=== PATIENT | female | born 1965 | race Caucasian/White ===

== ENCOUNTER 2020-09-12 09:55 | Emergency (ER) | payer OTHER, SELFPAY ==
--- NOTE | ~2020-09-12 | XR_ITS ---
EXAMINATION: XR chest 1V CLINICAL INFORMATION: Productive cough COMPARISON: None TECHNIQUE: XR chest 1V Tubes and lines: None Lungs and Margaret: Both lungs are clear. Pleura: Normal. Costophrenic angles are sharp. No pneumothorax. Heart and mediastinum: The mediastinum is within normal limits.. Bones: Skeletal structures included are normal for patient's age. XR/XR chest 1V IMPRESSION: No radiographic evidence of acute infiltrates or failure.
[2020-09-12 10:09] VITALS: BP 131/90; PULSE 76; RESP 18; TEMP 37; O2SAT 97; BMI 41.6
--- NOTE | 2020-09-12 10:48 | ED_ITS ---
HPI - URI/Sore Throat General Chief Complaint: General Medical Stated Complaint: COVID SYMPTOMS Time Seen by Provider: 09/12/20 10:18 Source: patient Mode of arrival: ambulatory Limitations: no limitations History of Present Illness HPI Narrative: 55-year-old female with a past medical history of bipolar, PTSD, depression, anxiety and a daily smoker presenting to the ED with complaints of subjective fevers, chills, body aches, generalized fatigue, nausea/vomiting, nasal congestion, productive cough with yellow-colored sputum, generalized abdominal pain and diarrhea for the past 2 days. Denies recent travel or sick contacts. Denies any dizziness, headaches, neck pain or stiffness, chest pain, dyspnea on exertion, orthopnea, palpitations, extremity edema, dysuria or any other symptoms complaints or concerns at this time. MD elicited complaint: fever, cough, rhinorrhea and nasal congestion Onset (ago): day(s) (2) Consistency: constant Severity: moderate Description of mucous: yellow Able to tolerate fluids by mouth: Yes Exacerbating factors: nothing Relieving factors: nothing Associated symptoms: fever, chills, myalgias, rhinorrhea, nasal congestion, cough, shortness of breath, abdominal pain, nausea, vomiting and diarrhea Treatments prior to arrival: none Related Data Previous Rx's Medication Instructions Recorded acetaminophen [Tylenol Extra 1,000 mg PO Q6-8H PRN #14 tab 09/12/20 Strength] albuterol sulfate 1 inh INHALATION QID PRN #8.5 g 09/12/20 azithromycin See Rx Instructions .ROUTE 09/12/20 .COMPLEX #6 tab cyclobenzaprine 10 mg PO TID PRN #10 tab 09/12/20 ibuprofen 800 mg PO Q8H PRN #14 tab 09/12/20 metoclopramide HCl [Reglan] 10 mg PO Q6H PRN #10 tab 09/12/20 prednisone 40 mg PO DAILY 5 Days #10 tab 09/12/20 Allergies Allergy/AdvReac Type Severity Reaction Status Date / Time No Known Allergies Allergy Unverified 04/23/20 15:16 Review of Systems Review of Systems: Constitutional : + Fever, + Chills, + Fatigue, + Malaise, No Night Sweats ENT/Mouth : + Nasal Congestion/rhinorrhea, No Sinus Pain, No Hoarseness, No sore throat, No Swallowing Difficulty, No Hearing loss, No Ear Pain Eyes: No Eye Pain, No Swelling, No Redness, No Foreign Body, No Discharge, No Vision Changes Cardiovascular : + SOB, No Chest Pain, No Dyspnea on Exertion, No Orthopnea, No Edema, No Palpitations Respiratory : + Cough, + Sputum, No Wheezing, No Smoke Exposure, No Dyspnea Gastrointestinal : + Nausea, + Vomiting, + Diarrhea, + Abdominal pain, No Constipation, No Hematochezia, No Melena Genitourinary : no irregular bleeding, No Dysuria, No Urinary Frequency, No Hematuria, No Urinary Incontinence, No Urgency, No Flank Pain, No Urinary Flow Changes, No Hesitancy Musculoskeletal : + Myalgias, No joint pain, No Joint Swelling Skin : No Skin Lesions, No rash Neuro : No Weakness, No Numbness, No Paresthesias, No Loss of Consciousness, No Dizziness, No Headache Psych : No Anxiety/Panic, No Depression, No SI/HI/AH/VH, No Social Issues, Heme/Lymph: No Bruising, No Bleeding,No Lymphadenopathy Endocrine : No Polyuria, No Polydipsia, No Temperature Intolerance Yes all other systems are reviewed and are negative [facility] Past Medical History Attestation statement: The following information was validated with the patient. Medical History Anxiety Bipolar disorder Depression Pneumonia PTSD (post-traumatic stress disorder) Smoker Social History Social History Advance Directives: No Advance Directives Information Provided: No Physical Exam Vital Signs: Vital Signs: Last Vital Signs Temp 98.6 F 09/12/20 10:09 Pulse 76 09/12/20 10:09 Resp 18 09/12/20 10:09 BP 131/90 H 09/12/20 10:09 Pulse Ox 97 09/12/20 10:09 Body Mass Index 41.6 vital signs have been reviewed as normal and appeared to be correct. Blood pressure normal. Heart rate normal. Respiration rate normal. Temperature normal. Oxygen saturation normal. Appearance: Alert. Oriented X3. No acute distress. Head: Normal external exam. Normocephalic. Atraumatic. Eyes: PERRLA. EOMI. Conjunctiva and sclera normal. Eyelids normal. ENT: EAC normal. TM's Normal. Pharynx normal. Uvula midline. Moist mucous membranes. No trismus noted. No drooling noted. No muffled voice noted. Neck: Normal inspection. Neck supple. FROM. No adenopathy. Thyroid Normal. Trachea midline. No meningeal signs. No neck mass noted. CVS: Normal heart rate and rhythm. Heart sound normal. No murmurs noted. Pulses normal throughout. Respiratory: No respiratory distress. Painless inspiration. Breath sounds normal. No wheezes/rales/rhonchi noted. Chest nontender. No accessory muscle usage noted or decreased air movement noted. Abdomen: Soft and nontender. Bowel sounds normal in all 4 quadrants. No distention noted. No organomegaly noted. No visible injury noted. Back: No CVA tenderness. Full range of motion noted. Skin: Skin warm and dry. Normal skin color. Normal skin turgor. No rashes/lesions/lacerations noted. Extremities: No lower extremity edema. No calf tenderness noted. Extremities exhibit normal range of motion. Extremities nontender. Neuro: Oriented X 3. No motor deficit. No sensory deficit. Reflexes normal. Course Course Course Narrative: 55-year-old female with a past medical history of bipolar, PTSD, depression, anxiety and a daily smoker presenting to the ED with complaints of subjective fevers, chills, body aches, generalized fatigue, nausea/vomiting, nasal congestion, productive cough with yellow-colored sputum, generalized abdominal pain and diarrhea for the past 2 days. - on exam patient is alert and oriented x3. Not in any acute distress. Vital signs are within normal limits. Lungs are clear to auscultation. - I offered the patient labs, IV fluids and a chest x-ray although patient refused labs and IV fluids and is requesting solely a chest x-ray and a COVID/flu/RSV swab. - therefore at this time patient will have a SARS/flu/RSV swab and a chest x- ray. Will DC home with antibiotics and symptomatic treatment along with instructions to self isolate and instructions to return if any new or worsening symptoms. Patient understands agrees the plan. MDM - URI/Sore Throat Medical Records Attestation: I reviewed the patient's medical records. Lab Data Attestation: I reviewed the patient's lab results. Labs: Lab Results 09/12/20 Range/Units 10:49 Coronavirus (PCR) NEGATIVE (Negative) Influenza Type A (PCR) NEGATIVE (Negative) Influenza Type B (PCR) NEGATIVE (Negative) RSV RNA Qual (PCR) NEGATIVE (Negative) Imaging Data Chest x-ray: Attestation: I personally reviewed and interpreted this imaging study as follows: Radiologist's impression: EXAMINATION: XR chest 1V CLINICAL INFORMATION: Productive cough COMPARISON: None TECHNIQUE: XR chest 1V Tubes and lines: None Lungs and Margaret: Both lungs are clear. Pleura: Normal. Costophrenic angles are sharp. No pneumothorax. Heart and mediastinum: The mediastinum is within normal limits.. Bones: Skeletal structures included are normal for patient's age. XR/XR chest 1V IMPRESSION: No radiographic evidence of acute infiltrates or failure. Discharge Plan Discharge Clinical Impression: Acute viral syndrome Patient Disposition: Home, Self-Care Instructions: COVID-19 (Coronavirus Disease 2019) (ED) Additional Instructions: Based on your symptoms and history we have sent a COVID-19. Although your RESULT IS NEGATIVE at this time. At this time you will be okay for discharge. Please plan for self quarantine for up to 14 days. Do not expose yourself to others. You may not go to work. If testing does come back negative you may return to activities as long as you are no longer having any symptoms for at least 3 days. Please continue to follow cold instructions and wash your hands frequently. You may take Tylenol as directed on the bottle for pain or fever. Patient seen in the emergency department on 09/12/2020 and should be excused from work until negative test results AND until 72 hours without any symptoms AND at least 10 days have passed since symptoms first appeared or since last exposure to COVID-19 positive patient CDC Guidelines for home isolation: - Stay away from others - WEAR A MASK if you are sick AND STAY HOME - Cover your mouth and nose with a tissue when you cough or sneeze. Dispose of tissues in a lined trash can and wash your hands immediately with soap and water for at least 20 seconds. If soap and water are not available, clean hands with alcohol-based hand director embalmer that contains at least 60% alcohol. - Clean your hands often with soap and water for at least 20 seconds - Avoid touching your eyes, nose and mouth with unwashed hands - Do not share dishes, drinking glasses, cups, eating utensils, towels, or bedding with other people in your home. After using these items, wash them thoroughly with soap and water or put in the computer programmer chief. - Clean high-touch surfaces in your isolation area ( sick room and bathroom) every day; let a caregiver clean and disinfect high-touch surfaces in other areas of the home. Clean the area or item with soap and water or another detergent if it is dirty. Then, use a household disinfectant. - Limit contact with pets and animals: If you must care for a pet, wash your hands before and after interacting with them). Prescriptions: New cyclobenzaprine 10 mg tablet 10 mg PO TID PRN (Reason: muscle spasm) Qty: 10 RF: 0 azithromycin 250 mg tablet See Rx Instructions .ROUTE .COMPLEX Qty: 6 RF: 0 ibuprofen 800 mg tablet 800 mg PO Q8H PRN (Reason: pain) Qty: 14 RF: 0 prednisone 20 mg tablet 40 mg PO DAILY 5 Days Qty: 10 RF: 0 acetaminophen [Tylenol Extra Strength] 500 mg tablet 1,000 mg PO Q6-8H PRN (Reason: fever or pain) Qty: 14 RF: 0 albuterol sulfate 90 mcg/actuation HFA aerosol inhaler 1 inh inhalation QID PRN (Reason: shortness of breath or wheezing) Qty: 8.5 RF: 0 metoclopramide HCl [Reglan] 10 mg tablet 10 mg PO Q6H PRN (Reason: nausea and vomiting) Qty: 10 RF: 0 Referrals: Chica Watson PERSONAL FINANCE INSTRUCTOR [Primary Care Provider] - 2 days Stand Alone Forms: Work/School Release Interventions: ED Discharge Assessment Last Done: 09/12/20 11:42 Print Language: Greenlandic
[2020-09-12 11:37] LABS: Influenza A PCR NEGATIVE (Negative); Influenza B PCR NEGATIVE (Negative); Resp Syncy Virus RNA Qual PCR NEGATIVE (Negative); SARS COV2 PCR INHOUSE NEGATIVE (Negative)
== END 2020-09-12 11:46 | disposition home or self-care (01) ==
PROVIDERS: Physician Assistant Medical; Emergency Provider Emergency Medicine; PCP Nurse Practitioner Family
DX: B34.9 Viral infection, unspecified (principal); Z20.822 Contact with and (suspected) exposure to COVID-19; F17.200 Nicotine dependence, unspecified, uncomplicated; Z87.01 Personal history of pneumonia (recurrent)
CPT/HCPCS: 0241U; 36415; 71045; 99283

== ENCOUNTER 2022-04-25 18:41 | Emergency (ER) | payer MEDICARE, SELFPAY ==
[2022-04-25 18:51] VITALS: BP 157/93; PULSE 89; RESP 18; TEMP 36.7; O2SAT 100; BMI 42.3
== END 2022-04-26 00:07 | disposition left against medical advice (07) ==
PROVIDERS: Emergency Provider Emergency Medicine
DX: S61.012A Laceration without foreign body of left thumb without damage to nail, initial encounter (principal); W25.XXXA Contact with sharp glass, initial encounter; Y93.G1 Activity, food preparation and clean up; Y92.010 Kitchen of single-family (private) house as the place of occurrence of the external cause; Y99.9 Unspecified external cause status
CPT/HCPCS: 99281